=== PATIENT | male | born 1995 ===

== ENCOUNTER 2017-01-22 19:30 | Emergency (ER) | payer SELFPAY ==
[2017-01-22] MEDS ORDERED: Ondansetron HCl/PF 4 MG/2 ML Vial ONE (19:56)
== END 2017-01-22 21:33 | disposition home or self-care (01) ==
LOC: ERS 19:30
DX: F10.129 Alcohol abuse with intoxication, unspecified (principal)
CPT/HCPCS: 96361; 96374; J2405